=== PATIENT | male | born 1985 | race Caucasian/White ===

== ENCOUNTER 2016-12-28 07:35 | Inpatient (IN) | payer OTHER ==
[2016-12-28] VITALS (14 sets, daily range): BP systolic 100–136; BP diastolic 52–95
[~2016-12-28] VITALS: Ht 170.2 cm; Wt 92.9 kg
[2016-12-28 08:10] LABS: HEMATOCRIT 44.7 % (38.0-50.0); MCH 31.4 PG (29.0-34.0); MCHC 32.2 G/DL (30.0-36.0); MCV 97.4 FL (86-99); MEAN PLAT.VOLUME 9.5 uM^3 (9.0-12.4); PLATELET COUNT 267 K/uL (156-360); RBC DIS.WIDTH-CV 13.3 % (11.8-14.6); RBC DIS.WIDTH-SD 47.8 % (39-53); RED BLOOD COUNT 4.59 M/uL (4.00-5.50)
[2016-12-28 08:14] LABS: BASE EXCESS -2.8 mEq/L (-3 to +3); BICARBONATE 24.1 mEq/L (22-26); CARBOXY HGB 2.9 % (0-5); METHEMOGLOBIN 1.3 % (0-1.5); PCO2 49 mm Hg (35-45); PO2 248 mm Hg (80-100)
[2016-12-28 08:15] LABS: COMMENTS - BLOOD GASES A+C+; DEVICE 980 PB; FI02 100 %; SITE RR
[2016-12-28 08:16] LABS: MECHANICAL RATE 16 resp/min; MODE AC; PEEP 5 CM/H20; TIDAL VOLUME 500 ML; TOTAL RESP RATE 16 resp/min
[2016-12-28 08:25] LABS: TROP-I INTERPRETATION NEGATIVE
[2016-12-28 08:32] LABS: ADD MIUA? YES; BILIRUBIN NEGATIVE; BLOOD NEGATIVE; COLOR YELLOW ((YELLOW)); GLUCOSE (STRIP) 50; KETONES NEGATIVE; LEUKOCYTES NEGATIVE; NITRITE NEGATIVE; PROTEIN (STRIP) 100; SPECIFIC GRAVITY 1.014 (1.000-1.030)
[2016-12-28 08:41] LABS: BACTERIA RARE /HPF; CALCIUM OXALATE CRYSTALS 1+ /HPF; EPITHELIAL CELLS RARE /HPF; HYALINE CASTS 30-40 /LPF; MUCUS TRACE /LPF; RED BLOOD CELLS 0-5 /HPF (0-5); UCUL ADDED? YES; WHITE BLOOD CELLS 20-30 /HPF (0-5)
[2016-12-28 08:41] LABS: CHLORIDE 106 mEq/L (99-109); SODIUM 142 mEq/L (136-147)
[2016-12-28 08:42] LABS: GLUCOSE 131 mg/dL (70-99)
[2016-12-28 08:42] LABS: ADD MEDTOX COMMENT Y; AMPHETAMINE NEGATIVE (500 ng/mL); BARBITURATES NEGATIVE (200 ng/mL); BENZODIAZEPINES NEGATIVE (150 ng/mL); COCAINE NEGATIVE (150 ng/mL); INTERNAL CONTROLS VALID? YES; METHADONE NEGATIVE (200 ng/mL); METHAMPHETAMINE NEGATIVE (500 ng/mL); OPIATES (MORPHINE) PRESUMPTIVE POSITIVE (100 ng/mL); OXYCODONE NEGATIVE (100 ng/mL); PHENCYCLIDINE NEGATIVE (25 ng/mL); PROPOXYPHENE NEGATIVE (300 ng/mL); THC CANNABINOIDS NEGATIVE (50 ng/mL); TRICYCLIC ANTIDEPRESSANTS NEGATIVE (300 ng/mL)
[2016-12-28 08:44] LABS: ANION GAP 16 MEQ/L (2-14)
[2016-12-28 08:46] LABS: GFR ESTIMATE (CALCULATED) 45 mL/min/
[2016-12-28 08:47] LABS: UREA NITROGEN (BUN) 15 mg/dL (9-23)
[2016-12-28 12:55] LABS: METH RESISTANT S AUREUS PCR NEGATIVE (NEGATIVE); PROBE CHECK PASS; SPECIMEN PROCESSING CONTROL PASS
[2016-12-28 17:35] LABS: INTER. NORMALIZED RATIO 1.1; PROTHROMBIN TIME 11.9 SEC (10.2-12.9)
[2016-12-28 17:38] LABS: PTT 33.7 SEC (25-37)
[2016-12-28 19:11] LABS: POINT-OF-CARE METER ID UU13113731
[2016-12-28 20:20] LABS: UR CREATININE CONCENTRATION 188.9 MG/DL
[2016-12-28 20:31] LABS: APPEARANCE CLEAR/COLORLESS
[2016-12-28 20:32] LABS: RED CELL AREA COUNTED 18; RED CELL COUNT 1 /MM^3 (0-1); RED CELL DILUTION 1; WBC AREA COUNTED 18; WBC DILUTION 1; WHITE CELL COUNT 1 /MM^3 (0-5); WHITE CELL RAW COUNT 1
[2016-12-28 20:53] LABS: CSF EOSINOPHILS 0 % (0-25); MONONUCLEAR WBC'S 100 % (50-90); POLYNUCLEAR WBC'S 0 % (0-3)
[2016-12-29] VITALS (24 sets, daily range): BP systolic 106–164; BP diastolic 48–94
[2016-12-29 00:04] LABS: POINT-OF-CARE METER ID UU14208751
[2016-12-29 05:01] LABS: EOSINOPHIL (%) 1.3 % (0-5); EOSINOPHIL COUNT 0.1 K/uL (0-0.3); HEMATOCRIT 36.5 % (38.0-50.0); IMMATURE GRANULOCYTE (%) 0.4 % (0.0-0.7); INSTRUMENT ABS NEUTROPHIL CT 8.4 K/uL; LYMPHOCYTE COUNT 1.5 K/uL (1.0-2.8); MCH 31.5 PG (29.0-34.0); MCHC 34.2 G/DL (30.0-36.0); MEAN PLAT.VOLUME 9.6 uM^3 (9.0-12.4); MONOCYTE (%) 6.8 % (3-12); MONOCYTE COUNT 0.7 K/uL (0-0.8); NEUTROPHIL (%) 77.6 % (45-76); NEUTROPHIL COUNT 8.4 K/uL (1.8-6.4); PLATELET COUNT 213 K/uL (156-360); RBC DIS.WIDTH-CV 13.1 % (11.8-14.6); RBC DIS.WIDTH-SD 44.2 % (39-53); RED BLOOD COUNT 3.97 M/uL (4.00-5.50); WHITE BLOOD COUNT 10.8 K/uL (4.1-10.2)
[2016-12-29 05:07] LABS: CHLORIDE 110 mEq/L (99-109); POTASSIUM 3.3 mEq/L (3.7-5.4); SODIUM 144 mEq/L (136-147)
[2016-12-29 05:08] LABS: MAGNESIUM 1.9 mg/dL (1.3-2.7)
[2016-12-29 05:09] LABS: GLUCOSE 99 mg/dL (70-99)
[2016-12-29 05:10] LABS: ANION GAP 9 MEQ/L (2-14)
[2016-12-29 05:13] LABS: GFR ESTIMATE (CALCULATED) > 59 mL/min/
[2016-12-29 05:14] LABS: UREA NITROGEN (BUN) 10 mg/dL (9-23)
[2016-12-29 05:23] LABS: MCV 91.9 FL (86-99)
[2016-12-29 05:51] LABS: POINT-OF-CARE METER ID UU14208751
[2016-12-29 10:27] LABS: BASE EXCESS 3.2 mEq/L (-3 to +3); BICARBONATE 27.9 mEq/L (22-26); CARBOXY HGB 1.7 % (0-5); METHEMOGLOBIN 1.8 % (0-1.5)
[2016-12-29 10:28] LABS: COMMENTS - BLOOD GASES A+C+; DEVICE VENT; FI02 30 %; MECHANICAL RATE 16 resp/min; MODE AC/VC; PCO2 42 mm Hg (35-45); PO2 71 mm Hg (80-100); SITE RR; TOTAL RESP RATE 16 resp/min; pH 7.43 (7.35-7.45)
[2016-12-29 10:29] LABS: PEEP 5 CM/H20; TIDAL VOLUME 500 ML
[2016-12-29 11:39] LABS: POINT-OF-CARE METER ID UU14208751
[2016-12-29 12:44] LABS: HIV INDEX 0.13; HIV-1/2 AB/AG COMBO Nonreactive
[2016-12-29 13:43] LABS: HSV CSF Spec Source CSF (())
[2016-12-29 18:06] LABS: POINT-OF-CARE METER ID UU14208751
[2016-12-30] VITALS (18 sets, daily range): BP systolic 119–150; BP diastolic 64–90
[2016-12-30 00:34] LABS: POINT-OF-CARE METER ID UU14162636
[2016-12-30 05:40] LABS: EOSINOPHIL (%) 2.5 % (0-5); EOSINOPHIL COUNT 0.2 K/uL (0-0.3); HEMATOCRIT 34.8 % (38.0-50.0); IMMATURE GRANULOCYTE (%) 0.4 % (0.0-0.7); INSTRUMENT ABS NEUTROPHIL CT 5.4 K/uL; LYMPHOCYTE COUNT 1.7 K/uL (1.0-2.8); MCH 31.2 PG (29.0-34.0); MCHC 33.6 G/DL (30.0-36.0); MCV 92.8 FL (86-99); MEAN PLAT.VOLUME 9.6 uM^3 (9.0-12.4); MONOCYTE (%) 8.3 % (3-12); MONOCYTE COUNT 0.7 K/uL (0-0.8); NEUTROPHIL (%) 67.9 % (45-76); NEUTROPHIL COUNT 5.4 K/uL (1.8-6.4); PLATELET COUNT 209 K/uL (156-360); RBC DIS.WIDTH-CV 13.3 % (11.8-14.6); RBC DIS.WIDTH-SD 45.1 % (39-53); RED BLOOD COUNT 3.75 M/uL (4.00-5.50); WHITE BLOOD COUNT 7.9 K/uL (4.1-10.2)
[2016-12-30 06:04] LABS: ANION GAP 8 MEQ/L (2-14); CHLORIDE 114 MEQ/L (99-109); GFR ESTIMATE (CALCULATED) > 59 mL/min/; GLUCOSE 97 mg/dL (70-99); MAGNESIUM 2.1 mg/dl (1.3-2.7); POTASSIUM 3.7 MEQ/L (3.7-5.4); SAMPLE HEMOLYSIS CHECK 0; SAMPLE ICTERIC CHECK 0; SAMPLE LIPEMIA CHECK 0; SODIUM 147 MEQ/L (136-147); UREA NITROGEN (BUN) 5 mg/dL (9-23)
[2016-12-30 12:56] LABS: POINT-OF-CARE METER ID UU14208751
[2016-12-30 18:46] LABS: POINT-OF-CARE METER ID UU13113748
[2016-12-31] VITALS (23 sets, daily range): BP systolic 104–186; BP diastolic 63–109
[2016-12-31 06:09] LABS: EOSINOPHIL (%) 4.4 % (0-5); EOSINOPHIL COUNT 0.4 K/uL (0-0.3); HEMATOCRIT 38.7 % (38.0-50.0); IMMATURE GRANULOCYTE (%) 0.7 % (0.0-0.7); IMMATURE GRANULOCYTE COUNT 0.1 K/uL; INSTRUMENT ABS NEUTROPHIL CT 5.4 K/uL; LYMPHOCYTE COUNT 1.8 K/uL (1.0-2.8); MCH 32.1 PG (29.0-34.0); MCHC 33.9 G/DL (30.0-36.0); MCV 94.9 FL (86-99); MEAN PLAT.VOLUME 9.7 uM^3 (9.0-12.4); MONOCYTE (%) 7.8 % (3-12); MONOCYTE COUNT 0.6 K/uL (0-0.8); NEUTROPHIL (%) 65.6 % (45-76); NEUTROPHIL COUNT 5.4 K/uL (1.8-6.4); PLATELET COUNT 221 K/uL (156-360); RBC DIS.WIDTH-CV 13.7 % (11.8-14.6); RBC DIS.WIDTH-SD 47.1 % (39-53); RED BLOOD COUNT 4.08 M/uL (4.00-5.50); WHITE BLOOD COUNT 8.2 K/uL (4.1-10.2)
[2016-12-31 06:36] LABS: ANION GAP 9 MEQ/L (2-14); CHLORIDE 112 MEQ/L (99-109); GFR ESTIMATE (CALCULATED) > 59 mL/min/; GLUCOSE 111 mg/dL (70-99); MAGNESIUM 1.8 mg/dl (1.3-2.7); POTASSIUM 4.1 MEQ/L (3.7-5.4); SAMPLE HEMOLYSIS CHECK 0; SAMPLE ICTERIC CHECK 0; SAMPLE LIPEMIA CHECK 0; SODIUM 145 MEQ/L (136-147); UREA NITROGEN (BUN) 4 mg/dL (9-23)
[2016-12-31 13:15] LABS: POINT-OF-CARE METER ID UU13113748
[2016-12-31 17:41] LABS: BASE EXCESS 1.2 mEq/L (-3 to +3); CARBOXY HGB 2.2 % (0-5); METHEMOGLOBIN 1.5 % (0-1.5); PCO2 41 mm Hg (35-45); PO2 62 mm Hg (80-100); pH 7.41 (7.35-7.45)
[2016-12-31 17:42] LABS: COMMENTS - BLOOD GASES +C; DEVICE NC; O2 FLOW 2 L/MIN; SITE LR +A; TOTAL RESP RATE 20 resp/min
[2016-12-31 17:47] LABS: POINT-OF-CARE METER ID UU13113748
[2016-12-31] MEDS ORDERED: HYDROXYZINE PAM50 MG PO (19:42)
[2016-12-31] MEDS ORDERED: OLANZAPINE2.5 MG PO (19:45)
[2016-12-31] MEDS ORDERED: OLANZAPINE7.5 MG PO (19:46)
[2017-01-01] VITALS (25 sets, daily range): BP systolic 0–167; BP diastolic 0–108
[2017-01-01 05:34] LABS: EOSINOPHIL (%) 0 % (0-5); HEMATOCRIT 40.7 % (38.0-50.0); IMMATURE GRANULOCYTE (%) 0.6 % (0.0-0.7); IMMATURE GRANULOCYTE COUNT 0.1 K/uL; INSTRUMENT ABS NEUTROPHIL CT 12.1 K/uL; LYMPHOCYTE COUNT 0.9 K/uL (1.0-2.8); MCH 31.2 PG (29.0-34.0); MCHC 33.7 G/DL (30.0-36.0); MCV 92.7 FL (86-99); MEAN PLAT.VOLUME 9.4 uM^3 (9.0-12.4); MONOCYTE (%) 2.2 % (3-12); MONOCYTE COUNT 0.3 K/uL (0-0.8); NEUTROPHIL (%) 90.6 % (45-76); NEUTROPHIL COUNT 12.1 K/uL (1.8-6.4); RED BLOOD COUNT 4.39 M/uL (4.00-5.50); WHITE BLOOD COUNT 13.3 K/uL (4.1-10.2)
[2017-01-01 05:35] LABS: PLATELET COUNT 291 K/uL (156-360)
[2017-01-01 05:50] LABS: ANION GAP 10 MEQ/L (2-14); CHLORIDE 112 MEQ/L (99-109); GFR ESTIMATE (CALCULATED) > 59 mL/min/; GLUCOSE 129 mg/dL (70-99); MAGNESIUM 2.1 mg/dl (1.3-2.7); POTASSIUM 4.7 MEQ/L (3.7-5.4); SAMPLE HEMOLYSIS CHECK 0; SAMPLE ICTERIC CHECK 0; SAMPLE LIPEMIA CHECK 0; SODIUM 146 MEQ/L (136-147); UREA NITROGEN (BUN) 10 mg/dL (9-23)
[2017-01-01 11:56] LABS: POINT-OF-CARE METER ID UU14174217
[2017-01-01] MEDS ORDERED: ATARAX,VISTARIL50 MG PO (13:30)
[2017-01-01] MEDS ORDERED: ZYPREXA2.5 MG PO (13:31)
[2017-01-01] MEDS ORDERED: OLANZAPINE7.5 MG PO (13:31)
[2017-01-01] MEDS ORDERED: DIVALPROEX SOD500 MG PO (13:32)
[2017-01-01] MEDS ORDERED: CYANOCOBALAM1000 MCG PO (13:32)
[2017-01-01] MEDS ORDERED: PAIN RELIEF TP (13:33)
[2017-01-01] MEDS ORDERED: SILVADENE20 GM TP (13:34)
[2017-01-02 04:00] VITALS: BP 113/67
[2017-01-02 07:16] LABS: EOSINOPHIL COUNT 0.2 K/uL (0-0.3); IMMATURE GRANULOCYTE (%) 0.7 % (0.0-0.7); IMMATURE GRANULOCYTE COUNT 0.1 K/uL; INSTRUMENT ABS NEUTROPHIL CT 6.5 K/uL; LYMPHOCYTE COUNT 2.1 K/uL (1.0-2.8); MCH 32.5 PG (29.0-34.0); MCHC 34.9 G/DL (30.0-36.0); MCV 93.1 FL (86-99); MEAN PLAT.VOLUME 9.2 uM^3 (9.0-12.4); MONOCYTE (%) 7.6 % (3-12); MONOCYTE COUNT 0.7 K/uL (0-0.8); NEUTROPHIL COUNT 6.5 K/uL (1.8-6.4); PLATELET COUNT 275 K/uL (156-360); RBC DIS.WIDTH-CV 13.2 % (11.8-14.6); RBC DIS.WIDTH-SD 44.7 % (39-53); RED BLOOD COUNT 4.19 M/uL (4.00-5.50); WHITE BLOOD COUNT 9.6 K/uL (4.1-10.2)
[2017-01-02 07:45] LABS: ANION GAP 8 MEQ/L (2-14); CHLORIDE 109 MEQ/L (99-109); GFR ESTIMATE (CALCULATED) > 59 mL/min/; POTASSIUM 4.4 MEQ/L (3.7-5.4); SAMPLE HEMOLYSIS CHECK 0; SAMPLE ICTERIC CHECK 0; SAMPLE LIPEMIA CHECK 0; SODIUM 144 MEQ/L (136-147); UREA NITROGEN (BUN) 14 mg/dL (9-23)
[2017-01-02 07:46] VITALS: BP 129/68
[2017-01-02 07:46] LABS: GLUCOSE 94 mg/dL (70-99)
[2017-01-02 16:05] VITALS: BP 105/64
[2017-01-02 19:50] VITALS: BP 115/73
[2017-01-02 23:47] VITALS: BP 117/64
[2017-01-03 04:00] VITALS: BP 121/64
[2017-01-03 07:19] LABS: EOSINOPHIL (%) 2.3 % (0-5); EOSINOPHIL COUNT 0.2 K/uL (0-0.3); HEMATOCRIT 42.1 % (38.0-50.0); IMMATURE GRANULOCYTE (%) 0.6 % (0.0-0.7); IMMATURE GRANULOCYTE COUNT 0.1 K/uL; INSTRUMENT ABS NEUTROPHIL CT 5.1 K/uL; LYMPHOCYTE COUNT 1.9 K/uL (1.0-2.8); MCH 32.5 PG (29.0-34.0); MCHC 35.4 G/DL (30.0-36.0); MCV 91.9 FL (86-99); MEAN PLAT.VOLUME 9.4 uM^3 (9.0-12.4); MONOCYTE (%) 8.4 % (3-12); MONOCYTE COUNT 0.7 K/uL (0-0.8); NEUTROPHIL (%) 64.1 % (45-76); NEUTROPHIL COUNT 5.1 K/uL (1.8-6.4); PLATELET COUNT 307 K/uL (156-360); RBC DIS.WIDTH-SD 43.2 % (39-53); RED BLOOD COUNT 4.58 M/uL (4.00-5.50)
[2017-01-03 07:43] LABS: ANION GAP 10 MEQ/L (2-14); CHLORIDE 107 MEQ/L (99-109); GFR ESTIMATE (CALCULATED) > 59 mL/min/; GLUCOSE 95 mg/dL (70-99); MAGNESIUM 2.1 mg/dl (1.3-2.7); POTASSIUM 4.4 MEQ/L (3.7-5.4); SAMPLE HEMOLYSIS CHECK 0; SAMPLE ICTERIC CHECK 0; SAMPLE LIPEMIA CHECK 0; SODIUM 143 MEQ/L (136-147); UREA NITROGEN (BUN) 15 mg/dL (9-23)
[2017-01-03 08:03] VITALS: BP 135/72
[2017-01-03 15:20] VITALS: BP 127/78
[2017-01-03 23:50] VITALS: BP 122/63
[2017-01-04 03:21] VITALS: BP 108/65
[2017-01-04 06:48] LABS: EOSINOPHIL (%) 2.3 % (0-5); EOSINOPHIL COUNT 0.2 K/uL (0-0.3); HEMATOCRIT 43.7 % (38.0-50.0); IMMATURE GRANULOCYTE (%) 0.9 % (0.0-0.7); IMMATURE GRANULOCYTE COUNT 0.1 K/uL; INSTRUMENT ABS NEUTROPHIL CT 5.5 K/uL; LYMPHOCYTE COUNT 2.1 K/uL (1.0-2.8); MCH 31.2 PG (29.0-34.0); MCHC 33.9 G/DL (30.0-36.0); MEAN PLAT.VOLUME 9.4 uM^3 (9.0-12.4); MONOCYTE COUNT 0.8 K/uL (0-0.8); NEUTROPHIL COUNT 5.5 K/uL (1.8-6.4); PLATELET COUNT 330 K/uL (156-360); RBC DIS.WIDTH-CV 12.9 % (11.8-14.6); RBC DIS.WIDTH-SD 42.8 % (39-53); RED BLOOD COUNT 4.75 M/uL (4.00-5.50); WHITE BLOOD COUNT 8.7 K/uL (4.1-10.2)
[2017-01-04 07:08] LABS: ANION GAP 10 MEQ/L (2-14); CHLORIDE 107 MEQ/L (99-109); GFR ESTIMATE (CALCULATED) > 59 mL/min/; GLUCOSE 91 mg/dL (70-99); MAGNESIUM 2.2 mg/dl (1.3-2.7); POTASSIUM 4.5 MEQ/L (3.7-5.4); SAMPLE HEMOLYSIS CHECK 0; SAMPLE ICTERIC CHECK 0; SAMPLE LIPEMIA CHECK 0; SODIUM 144 MEQ/L (136-147); UREA NITROGEN (BUN) 17 mg/dL (9-23)
[2017-01-04 07:46] VITALS: BP 116/68
[2017-01-04 11:38] VITALS: BP 121/75
[2017-01-04] MEDS ORDERED: DIVALPROEX SOD500 MG PO (15:02)
[2017-01-04] MEDS ORDERED: VALTREX1000 MG PO (15:08)
[2017-01-04 15:50] VITALS: BP 119/78
== END 2017-01-04 16:51 | disposition home or self-care (01) | DRG 70 ==
LOC: EME 07:35 → EDOF 10:02 → 4WEST 10:02 → ENRESERV 10:21 → 4WEST 11:14 → ENRESERV 01-02 00:33 → 3EAST 01-02 01:52
PROVIDERS: Emergency Medicine; Internal Medicine; Internal Medicine Nephrology
PROC: 0BH17EZ Insertion of Endotracheal Airway into Trachea, Via Natural or Artificial Opening (ICD-10-PCS; principal; 2016-12-28)
PROC: 009U3ZX Drainage of Spinal Canal, Percutaneous Approach, Diagnostic (ICD-10-PCS; principal; 2016-12-28)
PROC: 5A1935Z Respiratory Ventilation, Less than 24 Consecutive Hours (ICD-10-PCS; principal; 2016-12-28)
DX: G93.40 Encephalopathy, unspecified (principal); J96.00 Acute respiratory failure, unspecified whether with hypoxia or hypercapnia; R56.9 Unspecified convulsions; J98.11 Atelectasis; E87.6 Hypokalemia; E83.42 Hypomagnesemia; E83.39 Other disorders of phosphorus metabolism; N39.0 Urinary tract infection, site not specified; R41.3 Other amnesia; F11.20 Opioid dependence, uncomplicated; R41.0 Disorientation, unspecified
CPT/HCPCS: 36600; 70450; 70551; 70553; 71010; 72125; 80048; 81003; 82570; 82803; 82945; 82948; 83735; 84100; 84156; 84157; 84300; 84484; 84999; 85025; 85027; 85610; 85730; 86617 90; 86618 90; 86703; 87040; 87070; 87077; 87086; 87147; 87186; 87205; 87529 90; 87641; 87899; 89051; 93005; 94002; 94003; 94640; 94640 76; 94760; 94799; 95819; 97530 GO; 99202; 99281; 99285; G0480; J0133; J0290; J0696; J1644; J1815; J1953; J2060; J2250; J2310; J2405; J2704; J2930; J3475; J3486; J7050; J7120; S0028